=== PATIENT | female | born 1970 | race Caucasian/White ===

== ENCOUNTER 2016-09-04 22:46 | Emergency (ER) | payer OTHER ==
--- NOTE | ~2016-09-04 | CT71 ---
[facility] A Service [facility] RADIOLOGY TEXT RESULTS PATIENT: BRYSON HACKETT LOCATION: [place] : [birth year] UNIT #: [id number] AGE: [address]: Von Whittington MD SEX: F ORDER DR: [id number] [address] [place] [id number] [facility]. [place], [place] [address] [id number] MR#: [id number] Acc #: [id number] NAME: BRYSON HACKETT : 1970 SEX: F STUDY DATE/TIME: 09/04/2016 23:43 UNIT: [place] ROOM: STUDY DESCRIPTION: CT Head Wo Contrast Attending Physician: Reynold Whittington M.D. Ordering Physician: Reynold Whittington M.D. Primary Care Physician: Michelle Alcala M.D. MEDICAL IMAGING REPORT This report is preliminary unless electronic signature is present EXAM Noncontrast CT head. DATE 09/04/2016 at 2343 HISTORY 46-year-old female with hypertension tonight. Frontal headache, chest pain radiating to the left arm for 4 days. Additional history of seizures. COMPARISON CT head without contrast, 04/05/2012. TECHNIQUE Axial noncontrast images were obtained from the skull base to the vertex. This CT exam was performed with one or more of the following radiation dose reduction techniques: automatic exposure control, adjustment of mA and/or kV according to patient size, and iterative reconstruction. FINDINGS Ventricular size and configuration are normal. There is no evidence of acute infarct or hemorrhage. There are no extraaxial fluid collections. No mass lesion or mass effect is seen. There are no skull fractures. IMPRESSION Normal noncontrast head CT. Dictated by... Britt Reese M.D. [facility] A Service [facility] RADIOLOGY TEXT RESULTS PATIENT: BRYSON HACKETT LOCATION: [place] : 70 UNIT #: [id number] AGE: [address]: Von Whittington MD SEX: F ORDER DR: THIS IS AN ELECTRONICALLY VERIFIED REPORT Britt Reese M.D. at 09/06/2016 1:52 AM ARDEN/brianna TD: 09/05/2016 10:49 JOB #: [id number] MEDICAL IMAGING REPORT COPY
--- NOTE | ~2016-09-04 | EKG ---
PATIENT: BRYSON HACKETT UNIT #: [id number] Ventricular Rate: 64 BPM Atrial Rate: 64 BPM P-R Interval: 166 ms QRS Duration: 86 ms Q-T Interval: 400 ms QTC Calculation(Bezet): 412 ms P [place]: 2 degrees Calculated R [place]: 33 degrees Calculated T [place]: 18 degrees Diagnosis Line: Normal sinus rhythm Diagnosis Line: Normal ECG Diagnosis Line: No previous ECGs available Diagnosis Line: Confirmed by HOMER MCDONALD MD ([id number]) on Diagnosis Line: 09/05/2016 8:18:43 AM INTERPRETING MD: HARRY ALFARO
[~2016-09-04 22:46] MED LIST: ALBUTEROL; ALBUTEROL MININEB NEB; ALBUTEROL0.83 MG/ML IH; ALBUTEROL17 G1; ALBUTEROL17 GM INH; ALBUTEROL17 GM NEB; ALPRAZOLAM PO; AMOXICILLIN PO; ANTIVERT PO; ASPIRIN81 M2 PO; ASPIRIN81 MG PO; ATENOLOL PO; AUGMENTIN 125-375 ML PO; BACTRIM DS TABL1 TA1 PO; BENADRYL PO; BENEFIBER98 GM PO; CALCIUM1 TAB.CHEW PO; CELEXA PO; CELEXA20 MG PO; CITALOPRAM HBR40 MG PO; CLARITIN10 MG PO; COMBIVENT INH14.7 GM INH; DARVOCET-N 1001 TAB PO; DICLOFENAC PO; DIFLUCAN PO; DOXYCYCLINE HY100 M1 PO; DOXYCYCLINE PO; FAMOTIDINE PO; FLAGYL PO; FLEXERIL PO; FLEXERIL10 MG PO; FLONASE ALLERG9.9 ML; FLONASE16 GM; GABAPENTIN800 MG PO; HCTZ PO; HYDROCHLOROTHIA25 MG PO; IBUPROFEN PO; IBUPROFEN800 MG PO; KCL PO; KEFLEX PO; KEFLEX500 MG; KEPPRA100 MG/ML PO; KEPPRA500 M1 PO; KEPPRA500 M2 PO; KEPPRA750 M1; KEPPRA750 M1 PO; KEPPRA750 MG PO; LASIX PO; LIPITOR20 MG PO; LIPITOR40 MG PO; LISINOPRIL10 MG PO; LORTAB 5/500 TA1 TA2 PO; MAXZIDE; MAXZIDE PO; MEDROL PO; MEDROL4 MG/DOSE- PO; METOPROLOL SUCC50 MG PO; METOPROLOL TAR100 MG PO; MOBIC PO; MONISTAT 11 EA; MUCINEX DM1 TAB.SR . PO; MULTI VITAMIN1 EACH PO; NASONEX17 GM; NEURONTIN; NEURONTIN PO; NEURONTIN600 MG; NEURONTIN800 MG PO; NILSTAT PO; NORCO 7.5-3251 EACH PO; NORFLEX100 M1 DOB; OMEPRAZOLE20 M2 PO; ORUDIS75 M1 PO; PERCOCET; PERCOCET 7.5-31 EACH PO; PERCOCET 7.5/321 TAB PO; PERCOCET PO; PERCOCET5/325 PO; PERCOCET7.5; PERCOCET7.5 PO; PHENERGAN25 MG PO; PREDNISONE PO; PRILOSEC; PRILOSEC PO; PRILOSEC20 M1 PO; PRILOSEC20 MG PO; PRILOSEC40 MG PO; PROAIR HFA8.5 GM; REQUIP0.25 MG PO; REQUIP1 MG PO; REQUIP2 MG; SPIRIVA18 MCG INH; SYMBICORT 16010.2 GM INH; SYMBICORT INH; SYMBICORT80; SYMBICORT80 INH; SYNTHROID PO; SYNTHROID0.2 MG PO; TIZANIDINE HCL4 M1 PO; TOPROL XL; TOPROL XL 50 MG50 MG PO; TOPROL XL PO; TOPROL XL100 MG PO; TOPROL XL50 MG PO; TRICOR134 MG PO; TYLOX 5/500 CAP1 CAP PO; VICKS PO; VICODIN 5/500 T1 TAB PO; VOLMAX4 MG PO; VOLTAREN75 MG PO; ZESTRIL10 M1 PO; ZITHROMAX PO; ZOFRAN ODT4 MG PO; [UNRECOGNIZED DRUG - OTHER] PO
[2016-09-04 22:49] LABS: BASOPHIL# 0.1 X10e3 (0-0.3); DIFF IND NO; EOSINOPHIL# 0.1 X10e3 (0-0.7); EOSINOPHIL% 1.5 % (0.0-7.0); HEMATOCRIT 42.3 % (35.0-45.0); HEMOGLOBIN 14.2 gm/dL (12.0-16.0); LYMPHOCYTE# 3.3 X10e3 (1.0-3.5); LYMPHOCYTE% 36.3 % (17.0-45.0); MEAN CORPUSCULAR HEMOGLOBIN 29.6 PG (28-34); MEAN CORPUSCULAR HGB CONC 33.6 g/dL (30-36); MEAN PLATELET VOLUME 9.1 FL (6.5-11.5); MONOCYTE# 0.5 X10e3 (0-1.0); MONOCYTE% 5.8 % (3.0-12.0); NEUTROPHIL# 5.1 X10e3 (1.5-7.1); NEUTROPHIL% 55.4 % (40-75); PLATELET COUNT 208 X10e3 (140-420); RED BLOOD COUNT 4.81 X10e (3.90-5.30); RED CELL DISTRIBUTION WIDTH 12.9 % (11.0-15.5); WHITE BLOOD COUNT 9.2 X10e3 (4.0-10.5)
[2016-09-04 22:53] LABS: POC - CKMB <1.0 ng/mL (0.0-7.9); POC - TROPONIN <0.05 ng/mL (<=0.05)
[2016-09-04 23:09] LABS: BLOOD UREA NITROGEN 6 mg/dL (9-23); CALCIUM SERUM 8.5 mg/dL (8.4-10.2); CARBON DIOXIDE 28 mmol/L (22-31); CHLORIDE 102 mmol/L (100-111); CREATININE SERUM 0.6 mg/dL (0.6-1.4); GLOM FILT RATE Estimated ABOVE60 mL/min (>60); GLUCOSE FASTING 86 mg/dL (70-110); POTASSIUM 3.2 mmol/L (3.5-5.1); SODIUM 137 mmol/L (135-145)
== END 2016-09-05 00:26 | disposition home or self-care (01) ==
LOC: CED 22:46
PROVIDERS: Emergency Medicine
DX: E87.6 Hypokalemia (principal); F17.210 Nicotine dependence, cigarettes, uncomplicated; I10 Essential (primary) hypertension; J44.9 Chronic obstructive pulmonary disease, unspecified; Z98.51 Tubal ligation status; Z90.49 Acquired absence of other specified parts of digestive tract
CPT/HCPCS: 36415; 70450; 80048; 82553; 84484; 85025; 93005; 99284

== ENCOUNTER 2016-11-27 12:05 | Emergency (ER) | payer OTHER ==
[2016-11-27] MEDS ORDERED: METOPROLOL SUC100 MG PO (12:13)
[2016-11-27] MEDS ORDERED: KEPPRA1000 MG PO (12:14)
[2016-11-27] MEDS ORDERED: NORVASC PO (12:14)
[2016-11-27] MEDS ORDERED: PRINIVIL40 MG PO (12:14)
[2016-11-27] MEDS ORDERED: NEURONTIN800 MG PO (12:15)
[2016-11-27] MEDS ORDERED: CITALOPRAM HBR40 MG PO (12:15)
[2016-11-27] MEDS ORDERED: ALBUTEROL17 GM INH (12:15)
[2016-11-27] MEDS ORDERED: LIPITOR40 MG PO (12:15)
[2016-11-27] MEDS ORDERED: BREO ELLIPTA 11 EACH INH (12:16)
== END 2016-11-27 12:43 | disposition home or self-care (01) ==
LOC: SED 12:05
DX: K08.89 Other specified disorders of teeth and supporting structures (principal); I10 Essential (primary) hypertension; F17.210 Nicotine dependence, cigarettes, uncomplicated; Z79.899 Other long term (current) drug therapy; Z79.891 Long term (current) use of opiate analgesic; Z88.5 Allergy status to narcotic agent; Z88.8 Allergy status to other drugs, medicaments and biological substances; Z91.09 Other allergy status, other than to drugs and biological substances
CPT/HCPCS: 99282